=== PATIENT | female | born 1980 | race Hispanic/Latino ===

== ENCOUNTER 2020-01-09 17:37 | Inpatient (IN) | payer MEDICARE, OTHER ==
[~2020-01-09] VITALS: Ht 162.6 cm; Wt 145.1 kg
[2020-01-09 18:13] LABS: BASOPHILS # (AUTO) 0.1 (0.0-0.1); BASOPHILS % 0.4 % (0.0-1.0); EOSINOPHILS # (AUTO) 0.1 (0.0-0.4); EOSINOPHILS % 0.3 % (0.0-6.0); HEMATOCRIT 42.7 % (34.2-44.1); LYMPHOCYTES # (AUTO) 2.9 (1.0-3.2); LYMPHOCYTES % 14.3 % (18.0-39.1); MEAN CORPUSCULAR HEMOGLOBIN 27.8 pg (28-32); MEAN CORPUSCULAR HGB CONC 32.8 g/dL (31-35); MEAN CORPUSCULAR VOLUME 84.9 fL (81-99); MONOCYTES % 4.7 % (4.4-11.3); NEUTROPHILS % 79.6 % (38.7-80.0); PLATELET COUNT 380 x10e3/uL (140-360); RED BLOOD COUNT 5.03 x10e6/uL (3.6-5.1); RED CELL DISTRIBUTION WIDTH 14.2 % (11.7-14.4)
[2020-01-09 18:15] LABS: PREGNANCY TEST, URINE NEGATIVE (NEGATIVE)
[2020-01-09 18:29] LABS: CLARITY,URINE CLEAR (CLEAR); COLOR,URINE YELLOW (YELLOW); LEUKOCYTE ESTERASE ,URINE SMALL (NEGATIVE); NITRITE,URINE NEGATIVE (NEGATIVE); PROTEIN,URINE DIPSTICK NEGATIVE (NEGATIVE)
[2020-01-09 18:30] LABS: BILIRUBIN,URINE NEGATIVE (NEGATIVE); KETONES,URINE NEGATIVE (NEGATIVE); URINE UROBILINOGEN 0.2 mg/dL (0.2 - 1)
[2020-01-09 18:33] LABS: ALANINE AMINOTRANSFERASE 594 IU/L (0-55); ALBUMIN 3.4 g/dL (3.5-5.0); ALBUMIN/GLOBULIN RATIO 0.7 (0.8-2.0); ALKALINE PHOSPHATASE 297 IU/L (40-150); ANION GAP 19.1 mmol/L (8-16); BLOOD UREA NITROGEN 9 mg/dL (7-26); BUN/CREATININE RATIO 14 (6-25); CALCIUM 9.4 mg/dL (8.4-10.2); CARBON DIOXIDE 24 mmol/L (22-29); CHLORIDE 94 mmol/L (98-107); CREATININE, SERUM 0.63 mg/dL (0.57-1.11); EST GLOMERULAR FILTRATION RATE > 60 ML/MIN (60-); GLUCOSE 341 mg/dL (74-118); POTASSIUM 4.1 mmol/L (3.5-5.1); SODIUM 133 mmol/L (136-145)
[2020-01-09 18:34] LABS: AMYLASE 72 U/L (25-125); LIPASE 59 U/L (8-78)
[2020-01-09 18:36] LABS: BACTERIA,URINE RARE /HPF; EPITHELIAL CELLS,URINE FEW /LPF
[2020-01-09] MEDS ORDERED: SODIUM CHLORIDE 0.9% 1000ML 1,000 ML IV ONE (19:00)
[2020-01-09] MEDS ORDERED: PIPER-TAZ 3.375 GM 50 ML IV ONE (19:00)
--- NOTE | 2020-01-09 19:16 | Emergency Department Note ---
History of Present Illnes History of Present Illness Chief Complaint: Abdominal Complaints History of Present Illness This is a 39 year old female in from home with complaints of right upper quadrant abdominal pain that radiates to her back and nausea and vomiting that started last . Patient reports her last bowel movement was 3 or 4 days ago and it was black however reports that she has been taking pepto bismol at home. Patient reports the pain gets worse when she eats but has not eaten in two days because she has not been able to hold anything down. . Historian: Patient Arrival Mode: Car Onset (how long ago): day(s) (6) Location: ruq abd Quality: pain Radiation: Reports back Severity: severe Duration (how long): day(s) (6) Timing of current episode: constant Progression: worsening Chronicity: new Context: Denies recent illness, Denies recent surgery Relieving factors: none Exacerbating factors: none Associated symptoms: Reports denies other symptoms, Reports nausea/vomiting Past Medical/Family History Physician Review I have reviewed the patient's past medical and family history. Any updates have been documented here. Past Medical History Recent Fever: No Clinical Suspicion of Infectio: No New/Unexplained Change in Ment: No Past Medical History: Diabetes, Hypothyroidism Past Surgical History: None Social History Smoking Cessation: Never Smoker Counseling Performed: No Alcohol Use: None Any Illegal Drug Use: No Other Any Pre-Existing Lines (PICC,: No Review of Systems Review of Systems Constitutional: Reports no symptoms EENTM: Reports no symptoms Cardiovascular: Reports no symptoms Respiratory: Reports no symptoms Gastrointestinal: Reports as per HPI Genitourinary: Reports no symptoms Musculoskeletal: Reports no symptoms Integumentary: Reports no symptoms Neurological: Reports no symptoms Psychological: Reports no symptoms Endocrine: Reports no symptoms Hematological/Lymphatic: Reports no symptoms Physical Exam Related Data Allergies: Coded Allergies: No Known Allergies (Unverified , 01/09/20) Triage Vital Signs Vital Signs Date Time Temp Pulse Resp B/P (MAP) Pulse Ox O2 Delivery O2 Flow Rate FiO2 01/09/20 17:41 99.8 116 18 163/90 100 Room Air Vital signs reviewed: Yes Physical Exam CONSTITUTIONAL Constitutional: Present well-developed, Present well-nourished; Absent distressed HENT HENT: Present normocephalic, Present atraumatic, Present oropharynx clear/moist, Present nose normal HENT L/R: Present left ext ear normal, Present right ext ear normal EYES Eyes: Reports PERRL, Reports conjunctivae normal NECK Neck: Present ROM normal PULMONARY Pulmonary: Present effort normal, Present breath sounds normal CARDIOVASCULAR Cardiovascular: Present regular rhythm, Present heart sounds normal, Present capillary refill normal, Present tachycardia GASTROINTESTINAL Abdominal: Present soft, Present bowel sounds normal, Present tender (moderate to ruq) GENITOURINARY Genitourinary: Present exam deferred SKIN Skin: Present warm, Present dry MUSCULOSKELETAL Musculoskeletal: Present ROM normal NEUROLOGICAL Neurological: Present alert, Present oriented x 3, Present no gross motor or sensory deficits PSYCHOLOGICAL Psychological: Present mood/affect normal, Present judgement normal Results Laboratory Result Diagram: 01/09/20 1749 01/09/20 1749 Laboratory Laboratory Tests Test 01/09/20 17:58 01/09/20 17:49 Urine Color Yellow (YELLOW) Urine Clarity Clear (CLEAR) Urine pH 7 (5 - 7) Urine Specific [place] 1.020 (1.010-1.025) Urine Protein Negative (NEGATIVE) Urine Glucose (UA) Negative (NEGATIVE) Urine Ketones Negative (NEGATIVE) Urine Blood Trace (NEGATIVE) Urine Nitrite Negative (NEGATIVE) Urine Bilirubin Negative (NEGATIVE) Urine Urobilinogen 0.2 mg/dL (0.2 - 1) Urine Leukocyte Esterase Small (NEGATIVE) Urine RBC 6-10 /HPF (0-5) Urine WBC 6-10 /HPF (0-5) Urine Epithelial Cells Few /LPF (NONE) Urine Bacteria Rare /HPF (NONE) Urine Test Negative (NEGATIVE) White Blood Count 20.18 x10e3/uL (4.8-10.8) Red Blood Count 5.03 x10e6/uL (3.6-5.1) Hemoglobin 14.0 g/dL (12.0-16.0) Hematocrit 42.7 % (34.2-44.1) Mean Corpuscular Volume 84.9 fL (81-99) Mean Corpuscular Hemoglobin 27.8 pg (28-32) Mean Corpuscular Hemoglobin Concent 32.8 g/dL (31-35) Red Cell Distribution Width 14.2 % (11.7-14.4) Platelet Count 380 x10e3/uL (140-360) Neutrophils (%) (Auto) 79.6 % (38.7-80.0) Lymphocytes (%) (Auto) 14.3 % (18.0-39.1) Monocytes (%) (Auto) 4.7 % (4.4-11.3) Eosinophils (%) (Auto) 0.3 % (0.0-6.0) Basophils (%) (Auto) 0.4 % (0.0-1.0) Neutrophils # (Auto) 16.0 (2.1-6.9) Lymphocytes # (Auto) 2.9 (1.0-3.2) Monocytes # (Auto) 1.0 (0.2-0.8) Eosinophils # (Auto) 0.1 (0.0-0.4) Basophils # (Auto) 0.1 (0.0-0.1) Absolute Immature Granulocyte (auto 0.14 x10e3/uL (0-0.1) Sodium Level 133 mmol/L (136-145) Potassium Level 4.1 mmol/L (3.5-5.1) Chloride Level 94 mmol/L (98-107) Carbon Dioxide Level 24 mmol/L (22-29) Anion Gap 19.1 mmol/L (8-16) Blood Urea Nitrogen 9 mg/dL (7-26) Creatinine 0.63 mg/dL (0.57-1.11) Estimat Glomerular Filtration Rate > 60 ML/MIN (60-) BUN/Creatinine Ratio 14 (6-25) Glucose Level 341 mg/dL (74-118) Calcium Level 9.4 mg/dL (8.4-10.2) Total Bilirubin 1.0 mg/dL (0.2-1.2) Aspartate Amino Transf (AST/SGOT) 83 IU/L (5-34) Alanine Aminotransferase (ALT/SGPT) 594 IU/L (0-55) Alkaline Phosphatase 297 IU/L (40-150) Total Protein 8.1 g/dL (6.5-8.1) Albumin 3.4 g/dL (3.5-5.0) Globulin 4.7 g/dL (2.3-3.5) Albumin/Globulin Ratio 0.7 (0.8-2.0) Amylase Level 72 U/L (25-125) Lipase 59 U/L (8-78) Lab results reviewed: Yes Imaging Imaging results reviewed: Yes Impressions Procedure: [id number] US/US GALLBLADDER Exam Date: 01/09/20 Exam Time: 2012 REPORT STATUS: Signed EXAM: Right Upper Quadrant Ultrasound with Doppler INDICATION: ^ruq pain ^Y COMPARISON: None. TECHNIQUE: Transverse and longitudinal images of the right upper abdomen were obtained. Grayscale, color Doppler and spectral waveform analysis of the hepatic vasculature and splenic vein were performed. FINDINGS: Liver: Size: 17.8 cm in the right midclavicular line, enlarged Appearance: Increased echogenicity, smooth contour Mass: No focal masses Gallbladder: Stones/Sludge: There are multiple gallstones with sludge. Wall: 0.3 cm Appearance: No pericholecystic fluid or hydrops. Sonographic Duffy's Sign: Negative Bile Ducts: Intrahepatic Ducts: No dilatation Extrahepatic Ducts: Common bile duct measures 0.6 cm, upper limit of normal. Pancreas: Visualized portions of the pancreatic head, neck and proximal body are normal. Right Kidney: Size: 12.4 cm Echogenicity: Normal Parenchymal thickness: Normal Collecting system: No hydronephrosis Stones: None Cyst/Mass: None Vessels: Main Portal Vein: Diameter: 0.95 cm, normal. Normal flow direction. Aorta: Visualized portions are normal Inferior Vena Cava: Visualized portions are normal Free Fluid: No ascites or pleural effusion IMPRESSION: 1. Cholelithiasis without evidence of cholecystitis. 2. Enlarged and steatotic liver. LV hyper to kid LV hypo to spleen Luna hyper to LV Liver Male < 16 cm Female < 15 cm Kidneys: NL 9-12 cm, <13 cm Spleen < 12 cm CBD < 7 mm CHD < 4-5 mm GB Wall < 3 mm Hydrops > 10 x 5 cm PV < 13 mm Panc. duct 3-2-1 Signed by: Dawson Aparicio MD on 01/09/2020 9:19 PM Dictated By: DAWSON APARICIO MD 18 Transcribed By: MONISHA on 01/09/202118 COPY TO: LAURE PADILLA MD~ Assessment & Plan Medical Decision Making MDM pt with ruq pain with n/v cbc, cmp, ua, preg test, gallbladder us, amylase, lipase ordered to eval for pancreatitis , gallstones, elevated lfts, leukocytosis pt with wbc of 20k lactic acid ordered, blood cultures ordered zosyn 3.375 grams iv ordered ns 1 liter iv bolus ordered I SPOKE WITH DR MAYO AND DR Khushi PASTRANA Assessment & Plan Final Impression: (1) Cholecystitis Depart Disposition: ADMITTED Last Vital Signs Date Time Temp Pulse Resp B/P (MAP) Pulse Ox O2 Delivery O2 Flow Rate FiO2 01/09/20 17:41 99.8 116 18 163/90 100 Room Air Medications in the ED Sodium Chloride 1,000 ml @ 999 mls/hr Q1H1M ONCE IV ; Start 01/09/20 at 19:00; Stop 01/09/20 at 20:00 Piperacillin Sod/ Tazobactam Sod 50 ml @ 50 mls/hr NOW ONCE IV ; Start 01/09/20 at 19:00; Stop 01/09/20 at 19:59; Status UNV LAURE APDILLA MD Jan 09, 2020 19:16
[2020-01-09 20:35] VITALS: BP_SYST 140; BP_SYST 158; BP_DIAS 93
--- NOTE | 2020-01-09 21:22 | Diagnostic Imaging Report ---
EXAM: Right Upper Quadrant Ultrasound with Doppler INDICATION: ^ruq pain ^Y COMPARISON: None. TECHNIQUE: Transverse and longitudinal images of the right upper abdomen were obtained. Grayscale, color Doppler and spectral waveform analysis of the hepatic vasculature and splenic vein were performed. FINDINGS: Liver: Size: 17.8 cm in the right midclavicular line, enlarged Appearance: Increased echogenicity, smooth contour Mass: No focal masses Gallbladder: Stones/Sludge: There are multiple gallstones with sludge. Wall: 0.3 cm Appearance: No pericholecystic fluid or hydrops. Sonographic Duffy's Sign: Negative Bile Ducts: Intrahepatic Ducts: No dilatation Extrahepatic Ducts: Common bile duct measures 0.6 cm, upper limit of normal. Pancreas: Visualized portions of the pancreatic head, neck and proximal body are normal. Right Kidney: Size: 12.4 cm Echogenicity: Normal Parenchymal thickness: Normal Collecting system: No hydronephrosis Stones: None Cyst/Mass: None Vessels: Main Portal Vein: Diameter: 0.95 cm, normal. Normal flow direction. Aorta: Visualized portions are normal Inferior Vena Cava: Visualized portions are normal Free Fluid: No ascites or pleural effusion IMPRESSION: 1. Cholelithiasis without evidence of cholecystitis. 2. Enlarged and steatotic liver. LV hyper to kid LV hypo to spleen Luna hyper to LV Liver Male < 16 cm Female < 15 cm Kidneys: NL 9-12 cm, <13 cm Spleen < 12 cm CBD < 7 mm CHD < 4-5 mm GB Wall < 3 mm Hydrops > 10 x 5 cm PV < 13 mm Panc. duct 3-2-1 Signed by: Sathish Bates MD on 01/09/2020 9:19 PM
[2020-01-09] MEDS ORDERED: MORPHINE SULFATE INJ 4 MG/ML INJ 1ML IV STA (21:39)
[2020-01-09] MEDS ORDERED: ONDANSETRON HCL INJ 2MG/ML 2ML 2 MG/ML VIAL IV STA (21:39)
--- OUTSIDE RECORDS SUMMARY | 2020-01-09 21:56 | XMS REPORT | Continuity of Care Document ---
Author Author [facility] Organization [facility] Address [address] Self [address] [place] [id number] Phone Unavailable Care Team Providers Care Director Technical Name Role Phone Billy PADILLA Attphys Unavailable Problems This patient has no known problems. Allergies, Adverse Reactions, Alerts This patient has no known allergies or adverse reactions. Medications This patient has no known medications. Procedures This patient has no known procedures. Results Test Description Test Time Test Comments Results Result Comments Source [facility] 2020-01-09 20:57:00 [facility] 1980 Sex: F [facility] [address] [address] Patient Name: RONDA RENDON MR #: [id number] : 1980 Age/Sex: 39/F Req #: [id number] [facility] Physician: Ordered by: LAURE PADILLA MD Report #: [id number] Location: ER Room/Bed: Procedure: [id number] US/US GALLBLADDER Exam Date: 01/09/20 Exam Time: 2012 REPORT STATUS: Signed EXAM: Right Upper Quadrant Ultrasound with Doppler INDICATION: ruq pain Y COMPARISON: None. TECHNIQUE: Transverse and longitudinal images of the right upper abdomen were obtained. Grayscale, color Doppler and spectral waveform analysis of the hepatic vasculature and splenic vein were performed. FINDINGS: Liver: Size: 17.8 cm in the right midclavicular line, enlarged Appearance: Increased echogenicity, smooth contour Mass: No focal masses Gallbladder: Stones/Sludge: There are multiple gallstones with sludge. Wall: 0.3 cm Appearance: No pericholecystic fluid or hydrops. Sonographic Duffy's Sign: Negative Bile Ducts: Intrahepatic Ducts: No dilatation Extrahepatic Ducts: Common bile duct measures 0.6 cm, upper limit of normal. Pancreas: Visualized portions of the pancreatic head, neck and proximal body are normal. Right Kidney: Size: 12.4 cm Echogenicity: Normal Parenchymal thickness: Normal Collecting system: No hydronephrosis Stones: None Cyst/Mass: None Vessels: Main Portal Vein: Diameter: 0.95 cm, normal. Normal flow direction. Aorta: Visualized portions are normal Inferior Vena Cava: Visualized portions are normal Free Fluid: No ascites or pleural effusion IMPRESSION: 1. Cholelithiasis without evidence of cholecystitis. 2. Enlarged and steatotic liver. LV hyper to kid LV hypo to spleen Luna hyper to LV Liver Male < 16 cm Female < 15 cm Kidneys: NL 9-12 cm, <13 cm Spleen < 12 cm CBD < 7 mm CHD < 4-5 mm GB Wall < 3 mm Hydrops > 10 x 5 cm PV < 13 mm Panc. duct 3-2-1 Signed by: Dawson Aparicio MD on 01/09/2020 9:19 PM Dictated By: DAWSON APARICIO MD 18 Transcribed By: MONISHA on 01/09/202118 COPY TO: LAURE PADILLA MD
[2020-01-09] MEDS ORDERED: ONDANSETRON HCL INJ 2MG/ML 2ML 2 MG/ML VIAL IV PRN (22:00)
[2020-01-09] MEDS ORDERED: MORPHINE SULFATE INJ 4 MG/ML INJ 1ML IV PRN (22:00)
[2020-01-09] MEDS ORDERED: DEXTROSE 50% SYRINGE 50 ML IV PRN (22:00)
[2020-01-09] MEDS: SODIUM CHLORIDE 0.9% 1000ML 1,000 ML IV SCH (22:04)
[2020-01-09 22:25] VITALS: BP 158/93
--- NOTE | 2020-01-09 22:35 | NUR ---
Pt admitted to room 296 via stretcher from home. Pt stated n/v and RUQ abdominal pain x1 week. Pt alert and oriented to name, hospital, time, and diagnosis: cholecystitis. Pt ambulatory with steady gait. Lungs CTA. Pt c/o of mild abdominal pain, previously medicated. Last BM 01/06, denies dysuria. 20g IV left AC running NS @125. Pt oriented to room, transition care folder, and white board. Call light within reach.
[2020-01-10] VITALS (7 sets, daily range): BP systolic 106–126; BP diastolic 61–75
[2020-01-10] MEDS: PIPER-TAZ 3.375 GM / NS 50ML IV SCH ×4 (00:30→18:06)
[2020-01-10 05:42] LABS: BASOPHILS # (AUTO) 0.1 (0.0-0.1); BASOPHILS % 0.3 % (0.0-1.0); EOSINOPHILS # (AUTO) 0.1 (0.0-0.4); EOSINOPHILS % 0.7 % (0.0-6.0); HEMATOCRIT 37.6 % (34.2-44.1); LYMPHOCYTES # (AUTO) 2.5 (1.0-3.2); MEAN CORPUSCULAR HEMOGLOBIN 27.6 pg (28-32); MEAN CORPUSCULAR HGB CONC 31.9 g/dL (31-35); MEAN CORPUSCULAR VOLUME 86.6 fL (81-99); MONOCYTES # (AUTO) 1.1 (0.2-0.8); MONOCYTES % 6.1 % (4.4-11.3); NEUTROPHILS # (AUTO) 13.7 (2.1-6.9); NEUTROPHILS % 78.2 % (38.7-80.0); PLATELET COUNT 310 x10e3/uL (140-360); RED BLOOD COUNT 4.34 x10e6/uL (3.6-5.1)
[2020-01-10] MEDS: SODIUM CHLORIDE 0.9% 1000ML 1,000 ML IV SCH ×2 (06:00→09:05)
[2020-01-10 06:07] LABS: MAGNESIUM 1.6 MG/DL (1.3-2.1); PHOSPHORUS 2.7 MG/DL (2.3-4.7)
[2020-01-10 06:26] LABS: THYROID STIMULATING HORMONE 4.214 uIU/mL (0.350-4.940)
[2020-01-10 06:53] LABS: ALANINE AMINOTRANSFERASE 393 IU/L (0-55); ALBUMIN 2.8 g/dL (3.5-5.0); ALBUMIN/GLOBULIN RATIO 0.7 (0.8-2.0); ALKALINE PHOSPHATASE 220 IU/L (40-150); AMYLASE 32 U/L (25-125); ANION GAP 14.5 mmol/L (8-16); BLOOD UREA NITROGEN 8 mg/dL (7-26); BUN/CREATININE RATIO 13 (6-25); CALCIUM 8.3 mg/dL (8.4-10.2); CARBON DIOXIDE 25 mmol/L (22-29); CHLORIDE 99 mmol/L (98-107); CREATININE, SERUM 0.61 mg/dL (0.57-1.11); EST GLOMERULAR FILTRATION RATE > 60 ML/MIN (60-); GLUCOSE 297 mg/dL (74-118); LIPASE 22 U/L (8-78); POTASSIUM 3.5 mmol/L (3.5-5.1); SODIUM 135 mmol/L (136-145)
[2020-01-10] MEDS: INSULIN REGULAR, HUMAN 100 UNIT/1 ML 3ML VIAL SQ SCH ×2 (07:30→11:30)
--- NOTE | 2020-01-10 07:35 | NUR ---
PATIENT SITTING AT BED SIDE WATCHING TV, NO COMPLAIN VOICED. IV FLUID IN FUSING ORDERED. BED IN LOWER POSITION, CALL LIGHT AT REACH.
[2020-01-10] MEDS ORDERED: ACETAMINOPHEN/CODEINE 300MG - 30MG TAB PO PRN (09:00)
[2020-01-10] MEDS ORDERED: ACETAMINOPHEN 325 MG TAB PO PRN (09:00)
[2020-01-10] MEDS ORDERED: HYDRALAZINE HCL 20 MG/ML VIAL IV PRN (09:00)
--- NOTE | 2020-01-10 11:48 | NUR ---
PATIENT OFF UNIT TO OR.
[2020-01-10] MEDS ORDERED: INSULIN REGULAR, HUMAN 100 UNIT/1 ML 3ML VIAL ONE (12:10)
[2020-01-10] MEDS ORDERED: LIDOCAINE 1% W/EPINEPHRINE 20 ML VIAL ONE (12:40)
[2020-01-10] MEDS ORDERED: BUPIVACAINE 0.25% 30ML SDV ONE (12:40)
[2020-01-10] MEDS ORDERED: ONDANSETRON HCL INJ 2MG/ML 2ML 2 MG/ML VIAL IV PRN (14:00)
[2020-01-10] MEDS ORDERED: HYDROCODONE/APAP 7.5MG-325MG 1 EA TAB PO PRN (14:00)
--- NOTE | 2020-01-10 14:43 | Operative Report ---
DATE OF PROCEDURE: 01/10/2020 SURGEON: Alen Mccoy MD PREOPERATIVE DIAGNOSES: Cholecystitis and cholelithiasis. POSTOPERATIVE DIAGNOSES: Cholecystitis and cholelithiasis. OPERATION PERFORMED: Laparoscopic cholecystectomy. DRY CLEANING SUPERVISOR: JOHN Perez. ANESTHESIA: General. COMPLICATIONS: None. ESTIMATED BLOOD LOSS: Minimal. DESCRIPTION OF PROCEDURE: With the patient lying in bed in the supine position under good general endotracheal anesthesia, the abdomen was prepped with Betadine solution and draped in the usual manner. A Veress needle was introduced into the right upper quadrant and pneumoperitoneum was established without any difficulty. A 5 mm trocar was placed in the right subcostal region and a 5 mm video laparoscope was placed into the intra-abdominal cavity. Under direct vision, an 11 mm trocar was placed into the umbilicus and a 10 mm video laparoscope was placed into the intra-abdominal cavity. Two more 5 mm trocars were placed in the right subcostal region. Video laparoscopy at this point revealed a gallbladder, that was covered with adhesions, contained multiple stones and a liver that shows significant fatty infiltration; the rest of the abdominal exploration was within normal limits. The adhesions of the gallbladder were then slowly and carefully taken down. The peritoneum overlying the neck of the gallbladder was then opened and the cystic duct was identified. The cystic duct was followed to its junction with the common duct. The cystic duct was then circumferentially dissected away from the common duct, doubly clipped and divided. The cystic artery was similarly doubly clipped and divided. The gallbladder was then slowly and carefully taken off the liver bed using the cautery scissors and perfect hemostasis was ascertained. The gallbladder was placed in a pouch and removed through the umbilicus. Video laparoscopy was then again carried out. The liver bed was found to be perfectly dry, all of the excess fluid was aspirated. The pneumoperitoneum was evacuated and all the trocars were removed under direct vision. The midline fascia at the umbilicus was then closed with a [id number] of 0 Vicryl. All layers were infiltrated on the way out with solution of 0.25% Marcaine, subcutaneous tissue was approximated with 3-0 Vicryl and the skin was closed with subcuticular 5-0 Vicryl. Benzoin, Steri-Strips, and Band-Aids were applied. The sponge, lap, and needle counts were correct. The patient tolerated the procedure well and returned to the recovery room in stable condition. MD LAMAR Persaud/SHELBIE /[id number]
--- NOTE | 2020-01-10 14:45 | NUR ---
PATIENT BACK TO UNIT FROM OR. ALERT AND VERBALLY RESPONSIVE, ASSISTED TO BED. IN BED WITH HEAD OF BED ELEVATED. 4 TROCAR SITES TO ABDOMEN WITH DRESSING DRY AND INTACT. V/S 98.4-85-20-135/92 AND 95% ON RA.
[2020-01-10] MEDS ORDERED: GLYCOPYRROLATE INJ 0.2 MG/ML VIAL ONE (15:37)
[2020-01-10] MEDS ORDERED: SUCCINYLCHOLINE CHLORIDE 20 MG/ML 10ML VIAL ONE (15:37)
[2020-01-10] MEDS ORDERED: METOCLOPRAMIDE HCL 10 MG/2ML VIAL ONE (15:37)
[2020-01-10] MEDS ORDERED: ONDANSETRON HCL INJ 2MG/ML 2ML 2 MG/ML VIAL ONE (15:37)
[2020-01-10] MEDS ORDERED: LIDOCAINE HCL 2% LOCAL INJ 5 ML SDV VIAL INJ ONE (15:37)
[2020-01-10] MEDS ORDERED: ROCURONIUM BROMIDE 10 MG/ML 5ML VIAL IV ONE (15:37)
[2020-01-10] MEDS ORDERED: SEVOFLURANE INHAL SOLN 250 ML PEN BTL ONE (15:37)
[2020-01-10] MEDS ORDERED: PROPOFOL IV EMULSION 10 MG/ML 20 ML VIAL ONE (15:37)
[2020-01-10] MEDS ORDERED: DEXAMETHASONE SOD PHOS INJ 4 MG/ML VIAL ONE (15:37)
[2020-01-10] MEDS: FAMOTIDINE 20 MG TAB PO SCH (16:30)
[2020-01-10] MEDS: INSULIN LISPRO 100 UNIT/1 ML 3ML VIAL SQ SCH ×3 (16:30→21:00)
--- NOTE | 2020-01-10 17:20 | NUR ---
PATIENT SITTING UP IN BED EATING DINNER, NO COMPLAIN VOICED. CALL LIGHT AT REACH.
--- NOTE | 2020-01-10 19:08 | NUR ---
RECEIVED PT SITTING ON THE RECLINER,PT HAD LAPCHOLE ,PT HAD 4 TROCHANTER SITES ,DENIES PAIN ,IV FLUID IS INFUSING AT 50 ML/HR.CALL LIGHT WITHIN REACH .CONTINUE TO MONITOR
[2020-01-10] MEDS ORDERED: ATORVASTATIN 40 MG TAB PO SCH (21:00)
[2020-01-10] MEDS ORDERED: INSULIN GLARGINE 100 UNITS/ML VIAL SQ SCH (21:00)
[2020-01-11] VITALS: BP 138/72
[2020-01-11] MEDS: PIPER-TAZ 3.375 GM / NS 50ML IV SCH ×3 (00:48→12:17)
[2020-01-11] MEDS: SODIUM CHLORIDE 0.9% 1000ML 1,000 ML IV SCH (00:48)
[2020-01-11 04:00] VITALS: BP 138/72
--- NOTE | 2020-01-11 05:44 | NUR ---
PT C/O PAIN AND GIVEN ORDERED PAIN MEDICATION.T RESTED DURING THE CALL LIGHT WITH IN REACH ,CONTINUE TO MONITOR
[2020-01-11 06:18] LABS: BASOPHILS % 0.2 % (0.0-1.0); EOSINOPHILS # (AUTO) 0.1 (0.0-0.4); EOSINOPHILS % 0.3 % (0.0-6.0); HEMATOCRIT 34.4 % (34.2-44.1); HEMOGLOBIN 10.9 g/dL (12.0-16.0); LYMPHOCYTES % 18.1 % (18.0-39.1); MEAN CORPUSCULAR HEMOGLOBIN 27.7 pg (28-32); MEAN CORPUSCULAR HGB CONC 31.7 g/dL (31-35); MEAN CORPUSCULAR VOLUME 87.5 fL (81-99); NEUTROPHILS # (AUTO) 12.4 (2.1-6.9); NEUTROPHILS % 74.6 % (38.7-80.0); PLATELET COUNT 293 x10e3/uL (140-360); RED BLOOD COUNT 3.93 x10e6/uL (3.6-5.1); RED CELL DISTRIBUTION WIDTH 14.2 % (11.7-14.4)
[2020-01-11 06:42] LABS: ALANINE AMINOTRANSFERASE 262 IU/L (0-55); ALBUMIN 2.6 g/dL (3.5-5.0); ALBUMIN/GLOBULIN RATIO 0.7 (0.8-2.0); ALKALINE PHOSPHATASE 180 IU/L (40-150); ANION GAP 13.3 mmol/L (8-16); BLOOD UREA NITROGEN 6 mg/dL (7-26); BUN/CREATININE RATIO 11 (6-25); CALCIUM 8.2 mg/dL (8.4-10.2); CARBON DIOXIDE 27 mmol/L (22-29); CHLORIDE 100 mmol/L (98-107); CREATININE, SERUM 0.57 mg/dL (0.57-1.11); EST GLOMERULAR FILTRATION RATE > 60 ML/MIN (60-); GLUCOSE 226 mg/dL (74-118); POTASSIUM 3.3 mmol/L (3.5-5.1); SODIUM 137 mmol/L (136-145)
--- NOTE | 2020-01-11 07:22 | NUR ---
BEDSIDE REPORT GIVEN TO THE ONCOMING NURSE
[2020-01-11] MEDS: INSULIN LISPRO 100 UNIT/1 ML 3ML VIAL SQ SCH ×5 (08:00→17:30)
[2020-01-11 08:15] VITALS: BP 98/82
[2020-01-11] MEDS: FAMOTIDINE 20 MG TAB PO SCH (09:16)
[2020-01-11] MEDS ORDERED: Atorvastatin PO (09:19)
[2020-01-11] MEDS ORDERED: TYLENOL # 31 EA PO (09:19)
[2020-01-11] MEDS ORDERED: POTASSIUM CHLORIDE 20 MEQ TAB CR PO ONE (10:00)
[2020-01-11 10:32] VITALS: BP 98/82
[2020-01-11 11:59] VITALS: BP 113/72
[2020-01-11] MEDS ORDERED: ONDANSETRON HCL 4 MG ORAL DISINTEGRATING TAB PO PRN (13:00)
--- NOTE | 2020-01-11 14:44 | NUR ---
dr. wong left prescriptions for patient. waiting on clearance from surgery to discharge patient home
[2020-01-11 16:27] VITALS: BP 129/76
[2020-01-11] MEDS ORDERED: INSULIN LISPRO 100 UNIT/1 ML 3ML VIAL SQ SCH (16:30)
--- NOTE | 2020-01-11 17:54 | Consultation ---
DATE OF CONSULTATION: 01/10/2020 ENDOCRINE CONSULTATION: SOURCE OF CONSULTATION: The patient of Dr. Leggett. Thank you very much for referring this patient. HISTORY OF PRESENT ILLNESS: This is a 39-year-old female, who is referred to me for evaluation of uncontrolled diabetes mellitus. The patient reportedly is a known diabetic for last several years, she has stopped taking insulin about a year back. This time the patient came to the hospital with history of severe abdominal pain. On further evaluation, patient was found to have acute cholecystitis and is for laparoscopy cholecystectomy. The patient also has history of fatty liver. She does not take any routine medications atthis time at home. She does have family history of diabetes mellitus. PHYSICAL EXAMINATION: GENERAL: Today, the patient is alert, awake, little bit apprehensive. She is moderately overweight. VITAL SIGNS: Her heart rate is around 70, blood pressure 136/86 mmHg. HEENT: Essentially unremarkable. Thyroid is palpable. Clinically, she is near euthyroid. CHEST: Bilateral vesicular breathing. No rales. CARDIOVASCULAR: First and second heart sounds. There is no third or fourth heart sound. Ejection systolic murmur of grade 2/6. ABDOMEN: The patient has diffuse tenderness in epigastric and the right upper quadrant area and obese abdomen. LABORATORY DATA: Blood sugars at the time of admission where around 250-300 range. Her hemoglobin A1c is 12.0. IMPRESSION: Diabetes mellitus type 2 uncontrolled with complications, obesity, acute cholecystitis, status post for laparoscopic cholecystectomy. PLAN: The plan at this time is to adjust start on the Lantus and Humalog insulin. Monitor blood sugars closely. The patient needs extensive diabetic and dietary education. Thanks again for referring this patient. I will be following this patient with you. MD NATHALIE Villar/MODL /[id number]
[2020-01-11] MEDS ORDERED: INSULIN GLARGINE 100 UNITS/ML VIAL SQ SCH (21:00)
--- NOTE | 2020-01-13 05:54 | Discharge Summary ---
ADMISSION DIAGNOSES: Cholelithiasis, steatotic liver, super morbid obesity with a BMI of 54.9, type 2 diabetes, uncontrolled with hyperglycemia. DISCHARGE DIAGNOSES: Cholelithiasis, steatotic liver, super morbid obesity with a BMI of 54.9, type 2 diabetes, uncontrolled with hyperglycemia, hyperlipidemia. HISTORY: Type 2 diabetes, hypothyroidism. SURGICAL HISTORY: None. Now status post cholecystectomy. FAMILY HISTORY: The patient's dad had diabetes and a stroke. SOCIAL HISTORY: Noncontributory. HOSPITAL COURSE: A 39-year-old female admits with complaints of dull intermittent right upper quadrant abdominal pain that began last . By Tuesday, the pain became sharp and constant. She had associated nausea and vomiting, which worsened with eating. She denies fever and chills. On admission, ultrasound of the gallbladder showed cholelithiasis without evidence of cholecystitis, enlarged and steatotic liver. The patient had a laparoscopic cholecystectomy on 01/09, tolerated the procedure well, was passing gas, tolerating diet and pain control before discharge. Her urine culture and blood culture were negative. Her A1c was found to be 12%. She said she knows she is diabetic, was stopped taking medications about a year ago. Endocrinology was consulted and started the patient on insulin. The patient's triglyceride level was 152, cholesterol was 223, LDL was 161. She was started on Lipitor at bedtime as well as Lantus 25 units at bedtime and Humalog 12 units with each meal. She will follow up with Surgery and Endocrinology as well as primary care in 1 to 2 weeks. The patient understands instructions and agrees to plan. Dictated by Em Garrido NP MD ROLAND Childs/MODL /[id number]
== END 2020-01-11 18:57 | disposition home or self-care (01) | DRG 418 ==
LOC: ER 18:14 → ERHOLD 21:50 → MED/SURG3 22:32
PROVIDERS: ADMIT Internal Medicine; ATTEND Internal Medicine
PROC: 0FT44ZZ Resection of Gallbladder, Percutaneous Endoscopic Approach (ICD-10-PCS; principal; 2020-01-10 12:37)
DX: K80.12 Calculus of gallbladder with acute and chronic cholecystitis without obstruction (principal); Z68.43 Body mass index [BMI] 50.0-59.9, adult; K76.0 Fatty (change of) liver, not elsewhere classified; E66.01 Morbid (severe) obesity due to excess calories; E11.65 Type 2 diabetes mellitus with hyperglycemia; E78.5 Hyperlipidemia, unspecified; Z91.14 Patient's other noncompliance with medication regimen; G47.33 Obstructive sleep apnea (adult) (pediatric); I10 Essential (primary) hypertension; Z20.828 Contact with and (suspected) exposure to other viral communicable diseases
CPT/HCPCS: 36415; 76705; 80053; 80061; 81001; 81025; 82150; 82948; 83036; 83605; 83690; 83735; 84100; 84443; 85025; 87040; 87086; 88304; 99284; C1766; J0330; J1100; J1815; J1817; J2001; J2270; J2405; J2543; J2765; J7030; U0002

== ENCOUNTER 2020-07-11 02:14 | Emergency (ER) | payer OTHER ==
[~2020-07-11] VITALS: Ht 162.6 cm; Wt 145.1 kg
[~2020-07-11 02:14] MED LIST: Atorvastatin PO; TYLENOL # 31 EA PO
[2020-07-11] MEDS ORDERED: DEXAMETHASONE SOD PHOS 10 MG/1 ML VIAL IV ONE (02:30)
[2020-07-11] MEDS ORDERED: PIPERACILLIN/TAZOBAC 3.375 GM in SODIUM CHLORIDE 0.9% 50ML 50 ML IV ONE (02:30)
[2020-07-11 02:36] LABS: BASOPHILS # (AUTO) 0.1 (0.0-0.1); BASOPHILS % 0.4 % (0.0-1.0); EOSINOPHILS % 0.2 % (0.0-6.0); HEMATOCRIT 41.6 % (34.2-44.1); HEMOGLOBIN 13.4 g/dL (12.0-16.0); LYMPHOCYTES # (AUTO) 2.9 (1.0-3.2); LYMPHOCYTES % 11.3 % (18.0-39.1); MEAN CORPUSCULAR HEMOGLOBIN 28.5 pg (28-32); MEAN CORPUSCULAR HGB CONC 32.2 g/dL (31-35); MEAN CORPUSCULAR VOLUME 88.5 fL (81-99); MONOCYTES # (AUTO) 1.6 (0.2-0.8); MONOCYTES % 6.3 % (4.4-11.3); NEUTROPHILS # (AUTO) 20.5 (2.1-6.9); PLATELET COUNT 459 x10e3/uL (140-360)
[2020-07-11 02:53] LABS: ANION GAP 21.9 mmol/L (8-16); BLOOD UREA NITROGEN 9 mg/dL (7-26); BUN/CREATININE RATIO 12 (6-25); CALCIUM 10.2 mg/dL (8.4-10.2); CARBON DIOXIDE 27 mmol/L (22-29); CHLORIDE 95 mmol/L (98-107); CREATININE, SERUM 0.77 mg/dL (0.57-1.11); EST GLOMERULAR FILTRATION RATE > 60 ML/MIN (60-); GLUCOSE 334 mg/dL (74-118); POTASSIUM 3.9 mmol/L (3.5-5.1); SODIUM 140 mmol/L (136-145)
[2020-07-11] MEDS ORDERED: ACETAMINOPHEN 1000 MG/100 ML 100 ML IV ONE (03:12)
[2020-07-11] MEDS ORDERED: ACETAMINOPHEN 1000 MG/100 ML IV STA ×2 (03:15→04:20)
[2020-07-11] MEDS ORDERED: SODIUM CHLORIDE 0.9% 1000ML 1,000 ML IV ONE (03:45)
[2020-07-11] MEDS ORDERED: SODIUM CHLORIDE 0.9% 50ML 50 ML ONE (07:31)
[2020-07-11] MEDS ORDERED: IOPAMIDOL 370 MG/ML 200 ML INFUS..BTL INJ ONE (07:31)
== END 2020-07-11 09:20 | disposition other institution (70) ==
LOC: ER 02:40
DX: J03.90 Acute tonsillitis, unspecified (principal); R50.9 Fever, unspecified; E11.65 Type 2 diabetes mellitus with hyperglycemia; Z20.822 Contact with and (suspected) exposure to COVID-19
CPT/HCPCS: 36415; 70491; 80048; 83605; 84702; 85025; 87040; 99284; J0131; J1100; J2543; J7030; Q9967; U0002

== ENCOUNTER 2021-10-13 01:28 | Emergency (ER) | payer OTHER ==
[~2021-10-13] VITALS: Ht 162.6 cm; Wt 140.6 kg
[2021-10-13 02:07] LABS: BASOPHILS # (AUTO) 0.1 (0.0-0.1); BASOPHILS % 0.5 % (0.0-1.0); EOSINOPHILS # (AUTO) 0.3 (0.0-0.4); EOSINOPHILS % 2.3 % (0.0-6.0); HEMATOCRIT 37.7 % (34.2-44.1); HEMOGLOBIN 11.7 g/dL (12.0-16.0); LYMPHOCYTES # (AUTO) 3.5 (1.0-3.2); LYMPHOCYTES % 26.5 % (18.0-39.1); MEAN CORPUSCULAR HEMOGLOBIN 27.4 pg (28-32); MEAN CORPUSCULAR VOLUME 88.3 fL (81-99); MONOCYTES # (AUTO) 0.6 (0.2-0.8); MONOCYTES % 4.9 % (4.4-11.3); NEUTROPHILS # (AUTO) 8.5 (2.1-6.9); NEUTROPHILS % 65.3 % (38.7-80.0); PLATELET COUNT 374 x10e3/uL (140-360); RED BLOOD COUNT 4.27 x10e6/uL (3.6-5.1); RED CELL DISTRIBUTION WIDTH 13.6 % (11.7-14.4)
[2021-10-13 02:08] LABS: AMPHETAMINES SCREEN,URINE NEGATIVE (NEGATIVE); BENZODIAZEPINES SCREEN,URINE NEGATIVE (NEGATIVE); CLARITY,URINE CLEAR (CLEAR); COLOR,URINE YELLOW (YELLOW); PHENCYCLIDINE SCREEN,URINE NEGATIVE (NEGATIVE); URINE UROBILINOGEN 0.2 mg/dL (0.2 - 1)
[2021-10-13 02:09] LABS: KETONES,URINE NEGATIVE (NEGATIVE); LEUKOCYTE ESTERASE ,URINE 2+ (NEGATIVE); NITRITE,URINE NEGATIVE (NEGATIVE); PROTEIN,URINE DIPSTICK NEGATIVE (NEGATIVE)
[2021-10-13 02:25] LABS: ALANINE AMINOTRANSFERASE 19 IU/L (0-55); ALBUMIN 3.4 g/dL (3.5-5.0); ALBUMIN/GLOBULIN RATIO 0.9 (0.8-2.0); ALKALINE PHOSPHATASE 109 IU/L (40-150); BLOOD UREA NITROGEN 13 mg/dL (7-26); BUN/CREATININE RATIO 21 (6-25); CALCIUM 8.7 mg/dL (8.4-10.2); CARBON DIOXIDE 27 mmol/L (22-29); CHLORIDE 102 mmol/L (98-107); CREATINE KINASE 46 IU/L (29-168); CREATININE, SERUM 0.62 mg/dL (0.57-1.11); GLUCOSE 175 mg/dL (74-118); SODIUM 138 mmol/L (136-145)
[2021-10-13 02:29] LABS: BACTERIA,URINE MANY /HPF; EPITHELIAL CELLS,URINE MANY /LPF; WBC,URINE (MAN) >50 /HPF (0-5)
[2021-10-13] MEDS ORDERED: IOPAMIDOL 370 MG/ML 100 ML INFUS..BTL INJ ONE (02:38)
[2021-10-13] MEDS ORDERED: CIPRO500 MG PO (03:13)
[2021-10-13] MEDS ORDERED: ONDANSETRON ODT4 MG PO (03:13)
[2021-10-13] MEDS ORDERED: ULTRAM 50MG50 MG PO (03:13)
[2021-10-13 03:24] VITALS: BP 130/80
== END 2021-10-13 03:28 | disposition home or self-care (01) ==
LOC: ER 01:33
DX: R10.31 Right lower quadrant pain (principal); R00.2 Palpitations; E11.65 Type 2 diabetes mellitus with hyperglycemia; N39.0 Urinary tract infection, site not specified; R11.2 Nausea with vomiting, unspecified; R16.0 Hepatomegaly, not elsewhere classified; E03.9 Hypothyroidism, unspecified
CPT/HCPCS: 36415; 74177; 80053; 80307; 81001; 81025; 82550; 82553; 83690; 84484; 85025; 93005; 99284; Q9967

== ENCOUNTER 2021-11-27 18:39 | Emergency (ER) | payer OTHER ==
[~2021-11-27] VITALS: Ht 162.6 cm; Wt 140.6 kg
[~2021-11-27 18:39] MED LIST changes: +CIPRO500 MG PO; +ONDANSETRON ODT4 MG PO; +ULTRAM 50MG50 MG PO
[2021-11-27] MEDS ORDERED: ACETAMINOPHEN 325 MG TAB PO ONE (19:00)
[2021-11-27] MEDS ORDERED: SODIUM CHLORIDE 0.9% 1000ML 1,000 ML IV ONE (19:00)
[2021-11-27 19:09] LABS: BASOPHILS % 0.3 % (0.0-1.0); EOSINOPHILS % 0.1 % (0.0-6.0); HEMATOCRIT 39.3 % (34.2-44.1); HEMOGLOBIN 12.4 g/dL (12.0-16.0); LYMPHOCYTES # (AUTO) 1.4 (1.0-3.2); LYMPHOCYTES % 9.4 % (18.0-39.1); MEAN CORPUSCULAR HEMOGLOBIN 27.4 pg (28-32); MEAN CORPUSCULAR HGB CONC 31.6 g/dL (31-35); MEAN CORPUSCULAR VOLUME 86.8 fL (81-99); MONOCYTES # (AUTO) 1.3 (0.2-0.8); MONOCYTES % 8.8 % (4.4-11.3); NEUTROPHILS # (AUTO) 11.9 (2.1-6.9); NEUTROPHILS % 80.8 % (38.7-80.0); PLATELET COUNT 352 x10e3/uL (140-360); RED BLOOD COUNT 4.53 x10e6/uL (3.6-5.1); RED CELL DISTRIBUTION WIDTH 13.5 % (11.7-14.4)
[2021-11-27 19:28] LABS: ALBUMIN 2.8 g/dL (3.5-5.0); ALBUMIN/GLOBULIN RATIO 0.6 (0.8-2.0); ANION GAP 18.6 mmol/L (8-16); CALCIUM 9.4 mg/dL (8.4-10.2); CREATININE, SERUM 0.79 mg/dL (0.57-1.11); POTASSIUM 3.6 mmol/L (3.5-5.1)
[2021-11-27] MEDS ORDERED: KETOROLAC TROMETHAMINE 30 MG/ML VIAL IV STA (20:40)
[2021-11-27 22:15] LABS: CLARITY,URINE SL CLOUDY (CLEAR); COLOR,URINE AMBER (YELLOW); KETONES,URINE 1+ (NEGATIVE); LEUKOCYTE ESTERASE ,URINE MODERATE (NEGATIVE); NITRITE,URINE NEGATIVE (NEGATIVE); PROTEIN,URINE DIPSTICK 2+ (NEGATIVE)
[2021-11-27 22:16] LABS: URINE UROBILINOGEN 1 mg/dL (0.2 - 1)
[2021-11-27] MEDS ORDERED: KETOROLAC TROME10 MG PO (22:29)
[2021-11-27] MEDS ORDERED: CEFDINIR300 MG PO (22:29)
[2021-11-27] MEDS ORDERED: ONDANSETRON ODT4 MG PO (22:29)
[2021-11-27 22:40] LABS: BACTERIA,URINE MANY /HPF; EPITHELIAL CELLS,URINE MANY /LPF; RBC,URINE 21-50 /HPF (0-5); WBC,URINE (MAN) >50 /HPF (0-5)
[2021-11-27 23:12] VITALS: BP 108/68
== END 2021-11-27 22:50 | disposition home or self-care (01) ==
LOC: ER 18:49
DX: N12 Tubulo-interstitial nephritis, not specified as acute or chronic (principal); B96.20 Unspecified Escherichia coli [E. coli] as the cause of diseases classified elsewhere; E11.9 Type 2 diabetes mellitus without complications; E03.9 Hypothyroidism, unspecified
CPT/HCPCS: 36415; 74176; 80053; 81001; 83605; 84702; 85025; 87040; 87086; 87186; 99284; J0696; J1885; J7030